=== PATIENT | female | born 1965 | race Caucasian/White ===

== ENCOUNTER 2016-11-26 22:22 | Emergency (ER) | payer OTHER ==
[2016-11-27 00:25] VITALS: BP 180/111
== END 2016-11-27 00:25 | disposition other institution (70) ==
LOC: ED 22:22
DX: Z02.89 Encounter for other administrative examinations (principal); I16.0 Hypertensive urgency; T14.8 Other injury of unspecified body region; X58.XXXA Exposure to other specified factors, initial encounter; Y93.89 Activity, other specified; Y99.8 Other external cause status; Y92.098 Other place in other non-institutional residence as the place of occurrence of the external cause